=== PATIENT | male | born 1975 | race Caucasian/White ===

== ENCOUNTER 2025-04-22 14:44 | Emergency (ER) | payer OTHER, SELFPAY ==
--- NOTE | ~2025-04-22 | CT_ITS ---
CT pelvis wo con Ordering provider: Margie Ospina PA-C History: . fall . Comparison: None. Technique: CT pelvis without oral and IV contrast. . Automated exposure control and iterative recons truction technique were employed. The dose-length product was 413.38 mGy-cm. Findings: BONES: No pelvic fracture or hip dislocation. Possible old fracture in the tip of the right transvers e process of L4 which is partially imaged. 2 small bony fragments near to the greater tuberosity are noted which may be soft tissue calcification. Otherwise, Age appropriate degenerative changes of the visualized lower lumbar spine. The hip and sacroiliac joint spaces are well maintained. SUPERFICIAL SOFT TISSUES: Calcifications are seen near to the tip of the proximal 6 which is probably injected material. Hematoma is seen in the right buttock and upper thigh medially and posteriorly wh ich measures 3.9 x 6.2 x 5.5 cm. Adjacent fat stranding is seen in the right upper thigh and the righ t buttock. PELVIC ORGANS: The bladder is slightly underfilled with thickened wall. The right kidney is partially demonstrated. The left is not demonstrated. VISUALIZED BOWEL AND MESENTERY: Normal. No free air or free fluid. No lymphadenopathy. RETROPERITONEUM: Mild atheromatous disease. IMPRESSION: No evidence of fractures seen. Injected hyperdense material is seen near to the coccyx. Hematomas seen in the upper thigh and buttock medially with surrounding fat stranding most likely pos t traumatic. Clinical evaluation advised. Reviewed, dictated and finalized at location A. IMPRESSION: No evidence of fractures seen. Injected hyperdense material is seen near to the coccyx. Hematomas seen in the upper thigh and buttock medially with surrounding fat str anding most likely post traumatic. Clinical evaluation advised.
--- OUTSIDE RECORDS SUMMARY | 2025-04-22 14:48 | XMS_ITS | Clinical Summary ---
Author Organization [email or web address] Address [address] [place] [address] Care Team Providers Care Buttonhole Facer Name Role Phone Polo Salazar MD Primary Care Provider Source Comments [email or web address],non-owned Affiliates and Associated Physician Practices is amultiple site organization consisting of ambulatory clinics and hospital sitesin [place], [place], [place] and [place]. This disclosure is being madepursuant to the Care Everywhere program and may not contain all information available regarding this patient. Last updated 18.[email or web address] Allergies No known active allergies Medications * Be aware that medications may not be up to date on this document. Alwaysverify current medications with the patient. meloxicam (Mobic) 15 MG tablet Take 15 mg by mouth once daily Active vitamin D3 (Cholecalcifero l) 25 MCG (1000 UNITS) tablet Take 1,000 Units by mouth once daily Active cyanocobalamin (Vitamin B-12) 500 MCG tablet Take 500 mcg by mouth once daily Active melatonin 3 MG tablet Take 10 mg by mouth at bedtime Active butalbital-acet aminophen-caffe ine (Fioricet) 50-325-40 MG tabletIndicatio ns:Viral infection Take 1 (one) tablet by mouth every 4 hours as needed for Headache 30 tablet 07/28/2022 Active Active Problems Problem Noted Date Diagnosed Date Suspected rabies 07/27/2022 Social History Tobacco Use Types Packs/Day Years Used Date Smoking Tobacco: Light Smoker Cigarettes Smokeless Tobacco: Former Alcohol Use Standard Drinks/Week Comments Yes 1 (1 standard drink = 0.6 oz pur e alcohol) Hunger Vital Sign Answer Date Recorded Within the past 12 months, y ou worried that your food would run out before you got the money to buy more. Never true 07/28/20 22 Within the past 12 months, t he food you bought just didn't last and you didn't have money to get more. 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 Gender Identity Not on file Sexual Orientation Not on file Last Filed Vital Signs Vital Sign Reading Time Taken Comments Blood Pressure 137/81 07/28/2022 12:05 PM CDT Pulse 67 07/28/2022 12:05 PM CDT Temperature 37.4 C (99.4 F) 07/28/2022 12:00 PM CDT Respiratory Rate 19 07/28/2022 12:05 PM CDT Oxygen Saturation 97% 07/28/2022 12:05 PM CDT Inhaled Oxygen Concentration - - Weight 101 kg (222 lb 10.6 oz) 07/27/2022 11:46 PM CDT Height 188 cm (6' 2) 07/27/2022 11:46 PM CDT Body Mass Index 28.59 07/27/2022 11:46 PM CDT Plan of Treatment Health Maintenance Due Date Last Done Comments COLOGUARD (AGES 45-75) - COL ON CA SCREENING 1973 COLON MONITORING 1973 COLONOSCOPY - COLON CA SCREENING 1973 CT COLONOGRAPHY - COLON CA SCREENING 1973 Colorectal Cancer Screening 1973 FIT - COLON CA SCREENING 1973 FLEX SIG - COLON CA SCREENING 1973 LIPID TESTING 1973 HIV SCREENING 1988 HEPATITIS C SCREENING 05/15/1991 DTAP/TDAP/TD VACCINES (1 - Tdap) 1992 HEPATITIS B VACCINE (1 of 3 - 19+ 3-dose series) 1992 PNEUMOCOCCAL VACCINE 50+ (1 of 2 - PCV) 1992 ZOSTER VACCINE (1 of 2) 2023 COVID-19 VACCINE (1 - 2023-2 5 season) 2024 DEPRESSION SCREENING 11/26/2024 INFLUENZA VACCINE (Season Ended) 2025 HIB VACCINE Aged Out No longer eligi ble based on patient's age to complete this topic HPV VACCINE Aged Out No longer eligi ble based on patient's age to complete this topic MENINGOCOCCAL (Group B) VACC INE SHARED DECISION-MAKING Aged Out No longer eligibl e based on patient's age to complete this topic MENINGOCOCCAL GROUPS A/C/Y/W VACCINE Aged Out No longer eligible b ased on patient's age to complete this topic Insurance ANTHEM Advance Directives * Full Code (Latest Code Status on File) Date Activated Date Inactivated Comments 07/27/2022 11:58 PM 07/28/2022 5:10 PM Care Teams Buttonhole Facer Relationship Specialty Start Date End Date Polo Salazar MD [address] [place] [address] [place] [id number] PCP - General Internal Medicine 07/28/22
[2025-04-22 15:05] VITALS: BP 179/87; PULSE 79; RESP 16; TEMP 36.2; O2SAT 100
--- NOTE | 2025-04-22 16:09 | ED.FALL ---
HPI - Fall General Chief Complaint: Fall <Margie Ospina PA-C - Last Filed: 04/23/25 09:15> Stated Complaint: Fall-swollen R buttock/hematoma <CRIS Wood Last Filed: 04/23/25 09:15> Time Seen by Provider: 04/22/25 16:09 <Margie Ospina PA-C - Last Filed: 04/23/25 09:15> Focused HPI: This is a 49 year old male that presents to the ER for a fall. Reports he fell about a couple of feet onto his bottom. This happened this morning. He did not hit his head or lose consciousness. He does not take anticoagulation. Reports pain in the right buttock. GENERAL: Well-appearing, well-nourished, and in no acute distress. HEAD: Normocephalic, atraumatic. CHEST: Clear to auscultation. ?No respiratory distress. HEART: Regular rate and rhythm.? NEURO: ?Alert and oriented x3. Patient screened in triage and initial orders placed.? ?Additional care and disposition to be based upon?diagnostic testing and treatment. <Margie Ospina PA-C - Last Filed: 04/23/25 09:15> History of Present Illness HPI Narrative: Patient does not have any neurologic symptoms. No difficulty urinating. He has not had a bowel movement since the <Anoop Gonzales MD - Last Filed: 04/22/25 19:09> Related Data Home Medications: Home Medications ?Medication ?Instructions ?Recorded ?Confirmed ?Last Taken ?Type cholecalciferol (vitamin D3) 125 125 mcg PO DAILY 04/03/24 05/09/24 Unknown History mcg (5,000 unit) capsule magnesium / potassium 1 tablet BYMOUTH .QD 04/03/24 05/09/24 Unknown History mecobalamin (vitamin B12) 5,000 5,000 mcg PO DAILY 04/03/24 05/09/24 Unknown History mcg chewable tablet <CRIS Wood Last Filed: 04/23/25 09:15> Allergies/Adverse Reactions: Allergies Allergy/AdvReac Type Severity Reaction Status Date / Time Penicillins Allergy Other Verified 04/22/25 14:45 <Margie Ospina PA-C - Last Filed: 04/23/25 09:15> Review of Systems Review of Systems: All systems reviewed & are unremarkable except as noted in HPI and below <Margie Ospina PA-C - Last Filed: 04/23/25 09:15> [facility] Past Medical History Medical History: Medical History Chronic low back pain Vitamin D deficiency Dumping syndrome <Margie Ospina PA-C - Last Filed: 04/23/25 09:15> Surgical History Surgical History: Surgical History Status post evisceration History of intestinal surgery <Margie Ospina PA-C - Last Filed: 04/23/25 09:15> Family History Family History: Family History Mother Thyroid condition <Margie Ospina PA-C - Last Filed: 04/23/25 09:15> Social History Social History: Social History Smoking status: Former smoker Tobacco type: cigarettes Alcohol intake: current Drinks per week: 8 Alcohol use details: varies Substance use: never Substance use type: does not use Living arrangements: with family Occupation/Education: occupation Gender identity (if verbalized by the patient): Male Sexual Orientation (if Verbalized by the Patient): Straight or Heterosexual Spiritual care concerns: No Agree to blood products: Yes <Margie Ospina PA-C - Last Filed: 04/23/25 09:15> Exam Narrative: APPEARANCE: No apparent distress. Head: atraumatic. EYES: EOMI, NOSE: Atraumatic NECK: Trachea midline RESPIRATORY: No increased rate of breathing CARDIOVASCULAR: RRR, ABDOMINAL: Non-distended MUSCULOSKELETAl: Focal exam of the patient's glutes revealed a right-sided hematoma along the gluteal cleft. No drainage or open wounds. NEURO: Alert. Cranial nerves 2-12 grossly intact. Sensation light touch, motor function cerebellar function intact for 4 extremities. Gait exam was normal. SKIN:: Warm, dry. Normal color PSYCHIATRIC: Normal affect <Anoop Gonzales MD - Last Filed: 04/22/25 19:09> Course Vital Signs Vital signs: Vital Signs Temperature 97.1 F L 04/22/25 15:05 Pulse Rate 79 04/22/25 15:05 Respiratory Rate 16 04/22/25 15:05 Blood Pressure 179/87 H 04/22/25 15:05 Pulse Oximetry 100 04/22/25 15:05 Temperature 97.1 F L 04/22/25 15:05 Pulse Rate 70 04/22/25 18:41 Respiratory Rate 16 04/22/25 18:41 Blood Pressure 155/94 H 04/22/25 18:41 Pulse Oximetry 100 04/22/25 18:41 <Margie Ospina PA-C - Last Filed: 04/23/25 09:15> Vital Signs Temperature 97.1 F L 04/22/25 15:05 Pulse Rate 79 04/22/25 15:05 Respiratory Rate 16 04/22/25 15:05 Blood Pressure 179/87 H 04/22/25 15:05 Pulse Oximetry 100 04/22/25 15:05 Temperature 97.1 F L 04/22/25 15:05 Pulse Rate 70 04/22/25 18:41 Respiratory Rate 16 04/22/25 18:41 Blood Pressure 155/94 H 04/22/25 18:41 Pulse Oximetry 100 04/22/25 18:41 <Anoop Gonzales MD - Last Filed: 04/22/25 19:09> MDM - Fall MDM Narrative Medical decision making narrative: -Course: 49-year-old male presenting after a fall onto a large piece of concrete. He has a large hematoma in his right gluteal cleft. No other concerning findings. Hematoma will resolve on its own over time. Patient be discharged. Given return precautions for increased swelling pain or difficulty urinating or having a bowel movement. <Margie Ospina PA-C - Last Filed: 04/23/25 09:15> -Course: 49-year-old male presenting after a fall onto a large piece of concrete. He has a large hematoma in his right gluteal cleft. No other concerning findings. Hematoma resolve on its own over time. Patient be discharged. Given return precautions for increased swelling pain or difficulty urinating or having a bowel movement. <Anoop Gonzales MD - Last Filed: 04/22/25 19:09> Imaging Data Radiologist's impression: ITS Impressions Pelvis CT 04/22/25 16:50 IMPRESSION: No evidence of fractures seen. Injected hyperdense material is seen near to the coccyx. Hematomas seen in the upper thigh and buttock medially with surrounding fat stranding most likely post traumatic. Clinical evaluation advised. <Margie Ospina PA-C - Last Filed: 04/23/25 09:15> Critical Care Time Critical Care Time Critical Care Time: No <Margie Ospina PA-C - Last Filed: 04/23/25 09:15> Discharge Plan Discharge Clinical Impression: Hematoma <Margie Ospina PA-C - Last Filed: 04/23/25 09:15> Patient Disposition: Home <Margie Ospina PA-C - Last Filed: 04/23/25 09:15> Condition: Stable <Margie Ospina PA-C - Last Filed: 04/23/25 09:15> Instructions: Antibiotic Form, Hematoma (ED) <Margie Ospina PA-C - Last Filed: 04/23/25 09:15> Additional Instructions: You were seen in the emergency department for hematoma. This should resolve on its own over time. Please return to the ED if it continues to grow, if you develop severe pain or you have any difficulty urinating or having a bowel movement. <Margie Ospina PA-C - Last Filed: 04/23/25 09:15> Patient Language: Occitan <Margie Ospina PA-C - Last Filed: 04/23/25 09:15> Prescriptions: No Action cholecalciferol (vitamin D3) 125 mcg (5,000 unit) capsule 125 mcg PO DAILY mecobalamin (vitamin B12) 5,000 mcg tablet,chewable 5,000 mcg PO DAILY magnesium / potassium 1 tablet BYMOUTH .QD sodium,potassium,mag sulfates [Suprep Bowel Prep Kit] 17.5-3.13-1.6 gram recon soln See Rx Instructions PO .COMPLEX Qty: 354 0RF Rx Instructions: FOLLOW DOCTORS WRITTEN INSTRUCTIONS <CRIS Wood Last Filed: 04/23/25 09:15> Follow-up/Referrals: Abigail Rutledge PA-C [Primary Care Provider] - <Margie Ospina PA-C - Last Filed: 04/23/25 09:15>
--- NOTE | 2025-04-22 16:56 | PC.NURSE ---
Ice pack given
[2025-04-22 18:41] VITALS: BP 155/94; PULSE 70; RESP 16; O2SAT 100
--- OUTSIDE RECORDS SUMMARY | 2025-04-22 18:55 | XMS_ITS | Clinical Summary ---
Author Organization [facility] Address [address] [place] [address] Care Team Providers Care Sheep Herder Name Role Phone Polo Salazar MD Primary Care Provider [phone] Source Comments [facility],non-owned Affiliates and Associated Physician Practices is amultiple site organization consisting of ambulatory clinics and hospital sitesin [place], [place], [place] and [place]. This disclosure is being madepursuant to the Care Everywhere program and may not contain all information available regarding this patient. 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
== END 2025-04-22 19:20 | disposition home or self-care (01) ==
PROVIDERS: Emergency Provider Emergency Medicine; PCP Physician Assistant Medical
DX: S30.0XXA Contusion of lower back and pelvis, initial encounter (principal); W18.30XA Fall on same level, unspecified, initial encounter; E55.9 Vitamin D deficiency, unspecified; Z87.891 Personal history of nicotine dependence
CPT/HCPCS: 72192; 99284

== ENCOUNTER 2025-10-13 09:13 | Outpatient (CLI) | payer OTHER, SELFPAY ==
--- NOTE | ~2025-10-13 | CT_ITS ---
EXAM/PROCEDURE: CT shoulder RT w con HISTORY: Pain in rt shoulder COMPARISON: None available. TECHNIQUE: Right CT shoulder arthrography FINDINGS: No fracture subluxation or dislocation. 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 There is approximately 2.7 cm retracted full-thickness supraspinatus tendon with contrast extending into the subacromial and subdeltoid bursa. The retracted tendon tip is just lateral or distal to the midpoint of the humeral head. See image 22 series 601. There may be full-thickness subscapularis tendon tear as the insertion is not clearly seen on axial images 34 through 40 of series 4. No clearly retracted tear involving the infraspinatus or teres minor. No definite labral tear seen. The long head of the biceps tendon is intact within the bicipital groove. Superior labral attachment is not well seen. Spinoglenoid recess and suprascapular notch regions appear normal. IMPRESSION: 1. Full-thickness retracted supraspinatus tendon tear moderate-sized with retraction approximately 2.7 cm. 2. Full-thickness tear of the subscapularis tendon not excluded. 3. Moderate degenerative changes about the shoulder as above. Reviewed, dictated and finalized at location A. RNAL GRINDER IMPRESSION: 1. Full-thickness retracted supraspinatus tendon tear moderate-sized with retra ction approximately 2.7 cm. 2. Full-thickness tear of the subscapularis tendon not excluded. 3. Moderate degenerative changes about the shoulder as above.
--- NOTE | ~2025-10-13 | XR_ITS ---
EXAM/PROCEDURE: XR fl inj shoulder RT - MR/CT HISTORY: Pain in rt shoulder COMPARISON: None available. Fluoroscopy time: 0.3 minutes DAP: 0.437 [place] per square centimeter Number of images: 2 TECHNIQUE: After timeout performed and informed consent was obtained the patient was prepped and draped about the right shoulder using sterile technique. 1% lidocaine without epinephrine was used for local anesthesia. 14 cc of combined injection including 10 cc of Isovue 240, 5 cc of normal saline, and 5 cc of 1% lidocaine without epinephrine were used. The remaining 6 cc were discarded. Intra-articular location was confirmed. No immediate complication. IMPRESSION: Patient status post right shoulder injection for CT arthrography. No immediate complication. Reviewed, dictated and finalized at location A. STITCHER
== END 2025-10-13 09:14 | disposition home or self-care (01) ==
PROVIDERS: PCP Physician Assistant Medical; Visit Provider Orthopaedic Surgery
DX: M75.121 Complete rotator cuff tear or rupture of right shoulder, not specified as traumatic (principal); M19.011 Primary osteoarthritis, right shoulder
CPT/HCPCS: 23350; 73201; 77002; Q9966